=== PATIENT | female | born 1935 | race Caucasian/White ===

== ENCOUNTER 2018-11-11 13:11 | Inpatient (IN) | payer MEDICARE ==
[~2018-11-11] VITALS: Ht 162.6 cm; Wt 54.7 kg
[2018-11-11] MEDS ORDERED: MORPHINE SULFATE 2 MG/ML 1ML SYG ONE (13:42)
[2018-11-11 13:43] LABS: BASOPHILS % (AUTO) 0.6 % (0.0-5.0); EOSINOPHILS % (AUTO) 0.2 % (0.0-8.0); HEMATOCRIT 42.8 % (36-48); LYMPHOCYTES % (AUTO) 6.9 % (21.0-51.0); MEAN CORPUSCULAR HEMOGLOBIN 30.8 pg (27.0-33.0); MEAN CORPUSCULAR VOLUME 93.4 fL (79-99); MONOCYTES % (AUTO) 6.1 % (3.0-13.0); NEUTROPHILS % (AUTO) 86.2 % (40.0-77.0); PLATELET COUNT (AUTO) 327 K/uL (130-400); RED BLOOD CELL COUNT(AUTO) 4.58 MIL/uL (4.00-5.50); WHITE BLOOD COUNT (AUTO) 16.7 K/uL (4.8-10.8)
[2018-11-11 13:47] LABS: CREATININE 0.8 mg/dL (0.5-1.5); POTASSIUM 3.8 mmol/L (3.5-5.1)
[2018-11-11] MEDS ORDERED: KETOROLAC TROMETHAMINE 15MG/ML ONE ×2 (13:50→20:40)
[2018-11-11 13:56] LABS: ALBUMIN 3.5 g/dL (3.5-5.0); BILIRUBIN,TOTAL 0.5 mg/dL (0.2-1.0); TOTAL PROTEIN, SERUM 7.6 g/dL (6.0-8.3)
[2018-11-11] MEDS ORDERED: IPRATROPIUM/ALBUTEROL SULFATE 3 ML SOLUTION IH ONE (14:11)
[2018-11-11] MEDS ORDERED: FENTANYL CITRATE PF 50 MCG/1 ML 2ML VIAL ONE (16:23)
[2018-11-11] MEDS ORDERED: SODIUM CHLORIDE 0.9% 1000ML 1,000 ML IV SCH (16:36)
[2018-11-11] MEDS ORDERED: HYDRALAZINE HCL 20 MG/ML VIAL IV PRN (16:45)
[2018-11-11] MEDS ORDERED: ACETAMINOPHEN 325 MG TAB PO PRN ×2 (16:45)
[2018-11-11] MEDS ORDERED: LACTULOSE 20 GM/30 ML UDCUP PO PRN (16:45)
[2018-11-11 17:40] LABS: HEMOGLOBIN A1C 5.6 % (4.0-6.0)
[2018-11-11] MEDS ORDERED: IPRATROPIUM/ALBUTEROL SULFATE 3 ML SOLUTION IH PRN (20:30)
[2018-11-11 20:32] VITALS: BP 145/71
[2018-11-11] MEDS: ONDANSETRON HCL 4 MG/2 ML VIAL IV PRN (20:45)
[2018-11-11] MEDS: KETOROLAC TROMETHAMINE 15MG/ML IV PRN (20:45)
[2018-11-11] MEDS: METOPROLOL TARTRATE 25 MG TAB PO SCH (23:12)
[2018-11-11 23:25] VITALS: BP 119/54
[2018-11-12 03:52] VITALS: BP 139/60
[2018-11-12] MEDS: ONDANSETRON HCL 4 MG/2 ML VIAL IV PRN (04:08)
[2018-11-12] MEDS: KETOROLAC TROMETHAMINE 15MG/ML IV PRN ×2 (04:08→15:57)
[2018-11-12 07:46] VITALS: BP 128/57
[2018-11-12] MEDS: METOPROLOL TARTRATE 25 MG TAB PO SCH ×2 (09:01→20:17)
[2018-11-12] MEDS: ENOXAPARIN SODIUM 30 MG/0.3 ML SQ SCH (09:01)
[2018-11-12] MEDS: FAMOTIDINE/PF 20 MG/2 ML VIAL IV SCH (09:01)
--- NOTE | 2018-11-12 10:00 | NUR ---
INITIAL- INFO FROM SON SPOKE WITH SON RE DC PLANNING SON BELLA OWEN STATES HE MOVED HIS PARENTS DOWN TO CARE FOR THEM ABOUT TWO WEEKS AGO- MOM FELL AND FX'D LEG- UNDERSTANDS WILL NEED REHAB. 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 ARIEL TO BE SENT PENDING LIST FOR SON OF [facility] TO GET LIST AND SON LEFT BEFORE THIS CM RETURNED. WILL ASK CM TO FOLLOW UP Addendum: 11/12/18 at 1957 by MEHRDAD BERTRAND RN Amended: Links added.
[2018-11-12] MEDS ORDERED: ASPI-1197 PO (10:54)
[2018-11-12] MEDS ORDERED: BUPR150T8 PO (10:54)
[2018-11-12] MEDS ORDERED: TRAZ-185 PO (10:54)
[2018-11-12] MEDS ORDERED: AMLO10TA7 PO (10:54)
[2018-11-12] MEDS ORDERED: PRED10TA3 PO (10:54)
[2018-11-12] MEDS ORDERED: BUDE10.2 IH (10:54)
[2018-11-12] MEDS ORDERED: METO25TA6 PO (10:54)
[2018-11-12] MEDS ORDERED: TYL3 PO (10:54)
[2018-11-12] MEDS ORDERED: LORA10CA PO (10:54)
[2018-11-12] MEDS ORDERED: FLUT1BLS3 IH (10:54)
[2018-11-12 11:00] VITALS: BP 118/55
--- NOTE | 2018-11-12 15:40 | NUR ---
FAXED JOCELYNN FOR CARDIAC RECORD- ADVISED DR. ACOSTA WHO STATED HE DID NOT NEED THEM AND WAS SIGNING OFF Addendum: 11/12/18 at 2001 by MEHRDAD BERTRAND RN FROM HER ANTONY [facility]ERS. HAVE NOT FAXED FOR PULMONARY MD
[2018-11-12 16:00] VITALS: BP 132/76
[2018-11-12 20:06] VITALS: BP 102/50
[2018-11-12] MEDS: ACETAMINOPHEN-CODEINE 300/30MG TAB PO PRN (20:17)
[2018-11-12] MEDS: TRAZODONE HCL 50 MG TAB PO SCH (20:17)
[2018-11-12] MEDS: CEFTRIAXONE SODIUM 1 GM IVP SCH (23:14)
[2018-11-12 23:16] LABS: APPEARANCE,URINE Clear (CLEAR); BILIRUBIN,URINE Negative (NEGATIVE); COLOR,URINE Dark Yellow (YELLOW); GLUCOSE, URINE (UA) Negative (NEGATIVE); KETONES,URINE Negative (NEGATIVE); LEUKOCYTE ESTERASE ,URINE Moderate (NEGATIVE); NITRATE,URINE Negative (NEGATIVE); OCCULT BLOOD,URINE Negative (NEGATIVE); PH,URINE 5.5 (5.0-8.0); PROTEIN,URINE Negative (NEGATIVE)
[2018-11-12 23:25] LABS: RBC,URINE 0-1 /HPF (0-1)
[2018-11-12 23:26] LABS: BACTERIA,URINE Few /HPF (None Seen)
[2018-11-12 23:55] VITALS: BP 109/52
[2018-11-13] MEDS: ACETAMINOPHEN-CODEINE 300/30MG TAB PO PRN (03:37)
[2018-11-13 04:00] VITALS: BP 104/55
[2018-11-13 08:00] VITALS: BP 80/58
[2018-11-13 09:00] VITALS: BP 112/78
[2018-11-13] MEDS: AMLODIPINE BESYLATE 5 MG TAB PO SCH (09:00)
[2018-11-13] MEDS: Fluticasone/Umeclidin/Vilanter (Trelegy Ellipta 100-62.5- IH SCH (09:00)
[2018-11-13] MEDS ORDERED: SYMBICORT 160-4.5 MCG INHALER IH PRN (09:00)
[2018-11-13] MEDS: METOPROLOL TARTRATE 25 MG TAB PO SCH ×2 (09:00→20:36)
[2018-11-13] MEDS: PREDNISONE 10 MG TABLET PO SCH (09:29)
[2018-11-13] MEDS: LORATADINE 10 MG TABLET PO SCH (09:29)
[2018-11-13] MEDS: FAMOTIDINE/PF 20 MG/2 ML VIAL IV SCH (09:29)
[2018-11-13] MEDS: BUPROPION HCL 150 MG TABLET.SA PO SCH (09:30)
[2018-11-13] MEDS: ENOXAPARIN SODIUM 30 MG/0.3 ML SQ SCH (09:30)
[2018-11-13] MEDS: KETOROLAC TROMETHAMINE 15MG/ML IV PRN ×2 (10:44→20:37)
[2018-11-13 12:00] VITALS: BP 116/57
[2018-11-13] MEDS ORDERED: GUAIFENESIN-DM 200/20 MG 10 ML PO PRN (13:30)
[2018-11-13 16:00] VITALS: BP 113/52
[2018-11-13] MEDS: IPRATROPIUM/ALBUTEROL SULFATE 3 ML SOLUTION IH SCH ×2 (18:29→23:24)
[2018-11-13 20:12] VITALS: BP 121/51
[2018-11-13] MEDS: CEFTRIAXONE SODIUM 1 GM IVP SCH (20:36)
[2018-11-13] MEDS: TRAZODONE HCL 50 MG TAB PO SCH (20:36)
--- NOTE | 2018-11-13 21:40 | NUR ---
RECEIVED A CALL FROM DR. HERNANDEZ TO PLACE PT. ON NPO AT MIDNIGHT FOR CLOSE REDUCTION AND CASTING OF LEFT LEG AT 10AM (N 11/14/18). MR. BELLA Pedro ( PT. SON) NOTIFIED AT BEDSIDE AND AGREED. PROFESSOR OF MUSICOLOGY MADE AWARE.
[2018-11-14] VITALS (31 sets, daily range): BP systolic 70–156; BP diastolic 28–84
[2018-11-14] MEDS: KETOROLAC TROMETHAMINE 15MG/ML IV PRN ×2 (02:46→14:02)
[2018-11-14] MEDS: IPRATROPIUM/ALBUTEROL SULFATE 3 ML SOLUTION IH SCH ×3 (06:11→18:58)
[2018-11-14] MEDS: LORATADINE 10 MG TABLET PO SCH (08:46)
[2018-11-14] MEDS: AMLODIPINE BESYLATE 5 MG TAB PO SCH (08:46)
[2018-11-14] MEDS: PREDNISONE 10 MG TABLET PO SCH (08:46)
[2018-11-14] MEDS: BUPROPION HCL 150 MG TABLET.SA PO SCH (08:46)
[2018-11-14] MEDS: ENOXAPARIN SODIUM 30 MG/0.3 ML SQ SCH (08:46)
[2018-11-14] MEDS: Fluticasone/Umeclidin/Vilanter (Trelegy Ellipta 100-62.5- IH SCH (08:46)
[2018-11-14] MEDS: FAMOTIDINE/PF 20 MG/2 ML VIAL IV SCH (08:52)
[2018-11-14] MEDS: METOPROLOL TARTRATE 25 MG TAB PO SCH (08:52)
[2018-11-14] MEDS ORDERED: PROPOFOL 10 MG/ML 20ML VIAL IV ONE (11:14)
--- NOTE | 2018-11-14 11:45 | NUR ---
NOTICED LT FOOT TOES COL TO TOUCH WITH CAPILLARY REFILL 5-6 SEC,AND SLIGHTLY PURPLE . LE IS ELEVATED AND WARM AIR APPLIED TO IN PROVE PERFUSION. WILL CONTACT DR. HERNANDEZ Addendum: 11/14/18 at 1243 by GILMER DIAZ RN RN Amended: Links added.
[2018-11-14] MEDS ORDERED: EPHEDRINE SULFATE 50 MG/ML AMPULE ONE (11:46)
--- NOTE | 2018-11-14 12:05 | NUR ---
DR. HERNANDEZ NOTIFIED BY [employer]ESS[employer] THAT TOES TO LT FOOT HAD A CAPILLARY REFILL OF 5 TO 6 SEC , COLD TO TOUCH AND SLIGHTLY PURPLE . ORDER RECEIVED TO CUT CAST . Addendum: 11/14/18 at 1219 by GLIMER DIAZ RN RN Amended: Links added.
--- NOTE | 2018-11-14 12:45 | NUR ---
ANITA LIRATON [employer] B[employer] ARCHITECT AND XIOMARA MERAZ RN AT BEDSIDE TO CUT EXTERIOR PART OF CAST ORDERED FROM 5TH TOE TO HEAL. Addendum: 11/14/18 at 1309 by GILMER DIAZ RN RN Amended: Links added.
--- NOTE | 2018-11-14 13:20 | NUR ---
TRANSFER FROM PACU PATIENT TRANSFERRED FROM PACU, VITAL SIGNS IN EMR STABLE. PER REPORT, CAST TO LEFT LOWER EXTREMITY CUT FROM PINKY TOE TOWARDS HEEL DUE TO COMPRESSION. CAPILLARY REFILL POSITIVE AT 3-4 SECONDS, WARM TO TOUCH. LLE ELEVATED WITH PILLOWS. PT IS DROWSY BUT AAOX3. WILL CONTINUE TO MONITOR, NO PAIN AT THE MOMENT. PT VOICES FEELING TO LLE.
--- NOTE | 2018-11-14 13:20 | NUR ---
transfer back to [facility], toes pink in color, warm to touch , capillary refill 3-4 sec, no swelling noted . pt is able to wiggle toes and verbalizes sensation to be intact . no c/o numbness or tingling Addendum: 11/14/18 at 1336 by GILMER IDAZ RN RN Amended: Links added.
[2018-11-14] MEDS ORDERED: OXYCODONE/ACETAMIN 5/325MG TAB PO PRN ×2 (14:45)
--- NOTE | 2018-11-14 15:51 | NUR ---
DR. BOBO PENDING ROUND DR. BOBO MADE AWARE OF DR. RUBIN ORDERS. PT PENDING PHYSICAL THERAPY EVALUATION WELL WALKER EVALUATION. CAPILLARY REFILL REMAINS THE SAME. PER SON, UNDER IMPRESSION THAT DR HERNANDEZ HAS DISCHARGED PATIENT. MADE SON AWARE OF STANDPOINT FROM DR. HERNANDEZ, PER SON, HE HAS TO BE IN COURT TOMORROW AND WANTS HIS MOTHER DISCHARGE FROM HOSPITAL. WILL MAKE DR. BOBO AWARE. WILL FOLLOW DISCHARGE CLOSELY.
[2018-11-14] MEDS ORDERED: TRAM1TAB PO (19:09)
--- NOTE | 2018-11-14 19:14 | NUR ---
Patient requires 1 person assist for balance and safety NWB LLE using SW and 2 liters of oxygen.Recommending Home Health Physical Therapy for further home evaluation and transition for patient's with her ADL's. Addendum: 11/14/18 at 1916 by ANITA GARCIA, PT PT Amended: Links added.
--- NOTE | 2018-11-14 20:45 | NUR ---
DISCHARGE NOTES; Discharge home / meds instructions given to patient's son ( Vince ). Verbalized understanding. Questions entertained. Was seen and examined by PT. IV site to left FA discontinued with cath intact. Covered with gauze to prevent bleeding. Discharge via W/C per private vehicle to home. No apparent distress noted. No untoward incident happened. Cared for.
== END 2018-11-14 21:30 | disposition home or self-care (01) | DRG 563 ==
LOC: EDH 13:11 → EDHIP 16:36 → 4BH 19:12
PROVIDERS: ADMIT Internal Medicine; ATTEND Internal Medicine
PROC: 2W3MX2Z Immobilization of Left Lower Extremity using Cast (ICD-10-PCS; 2018-11-14)
PROC: 0QSHXZZ Reposition Left Tibia, External Approach (ICD-10-PCS; principal; 2018-11-14 11:21)
DX: S82.242A Displaced spiral fracture of shaft of left tibia, initial encounter for closed fracture (principal); N39.0 Urinary tract infection, site not specified; J44.9 Chronic obstructive pulmonary disease, unspecified; W06.XXXA Fall from bed, initial encounter; I10 Essential (primary) hypertension; I25.10 Atherosclerotic heart disease of native coronary artery without angina pectoris; Z96.641 Presence of right artificial hip joint; S82.142A Displaced bicondylar fracture of left tibia, initial encounter for closed fracture; Z99.81 Dependence on supplemental oxygen; Z95.2 Presence of prosthetic heart valve; Z87.891 Personal history of nicotine dependence; Z79.82 Long term (current) use of aspirin; Z85.3 Personal history of malignant neoplasm of breast; Z88.5 Allergy status to narcotic agent; Z90.13 Acquired absence of bilateral breasts and nipples; Y93.89 Activity, other specified; Y92.89 Other specified places as the place of occurrence of the external cause; Y99.8 Other external cause status
CPT/HCPCS: 36415; 71045; 73562; 73590; 73700; 80053; 81001; 83036; 84484; 85025; 87040; 87071; 87088; 87205; 93005; 93306; 94640; 94664; 97039; A4606; G0378; J0696; J1650; J1885; J2405; J2704; J3010; J3490; J7030; J7512

== ENCOUNTER 2020-10-16 12:12 | Emergency (ER) | payer MEDICARE ==
[~2020-10-16] VITALS: Ht 165.1 cm; Wt 59.0 kg
[~2020-10-16 12:12] MED LIST: AMLO-258 PO; ASPI-1197 PO; BUDE10.2 IH; BUPR150T8 PO; FLUT1BLS3 IH; LORA10CA PO; METO25TA6 PO; PRED10TA3 PO; TRAM1TAB PO; TRAZ-185 PO
[2020-10-16 12:13] VITALS: BP 128/60
[2020-10-16 12:42] LABS: BASOPHILS % (AUTO) 1.3 % (0.0-5.0); EOSINOPHILS % (AUTO) 1.8 % (0.0-8.0); HEMATOCRIT 40.5 % (36-48); LYMPHOCYTES % (AUTO) 18.4 % (21.0-51.0); MEAN CORPUSCULAR HEMOGLOBIN 30.2 pg (27.0-33.0); MEAN CORPUSCULAR HGB CONC 31.4 g/dL (32.0-36.0); MEAN CORPUSCULAR VOLUME 96.4 fL (79-99); MONOCYTES % (AUTO) 7.8 % (3.0-13.0); NEUTROPHILS % (AUTO) 70.4 % (40.0-77.0); PLATELET COUNT (AUTO) 311 K/uL (130-400); RED CELL DISTRIBUTION WIDTH 12.8 % (11.0-15.5); WHITE BLOOD COUNT (AUTO) 7.2 K/uL (4.8-10.8)
[2020-10-16 12:50] LABS: CARBON DIOXIDE 30 mmol/L (21-32); CHLORIDE 104 mmol/L (101-111); CREATININE 0.8 mg/dL (0.5-1.5); GLOMERULAR FILTR. RATE CALC 72 mL/min (>60); GLUCOSE,RANDOM 93 mg/dL (70-105); POTASSIUM 4.8 mmol/L (3.5-5.1); SODIUM SERUM 141 mmol/L (136-145); UREA NITROGEN, BLOOD 20 mg/dL (7-18)
[2020-10-16 13:02] LABS: ALANINE AMINOTRANSFERASE 29 U/L (12-78); ALBUMIN 3.9 g/dL (3.5-5.0); ASPARTATE AMINOTRANSFERASE 20 U/L (10-37); BILIRUBIN,TOTAL 0.3 mg/dL (0.2-1.0); CREATINE KINASE, TOTAL 92 U/L (21-232); MYOGLOBIN 71 ng/mL (10-92); TOTAL PROTEIN, SERUM 7.4 g/dL (6.0-8.3); TROPONIN I < 0.04 ng/mL (0.00-0.06)
[2020-10-16 13:18] LABS: INR 0.98 (0.85-1.15); PROTHROMBIN TIME 10.7 SEC (9.6-11.6)
[2020-10-16 13:20] LABS: PARTIAL THROMBOPLASTIN TIME 26.8 SEC (26.3-35.5)
[2020-10-16] MEDS ORDERED: ACETAMINOPHEN 325 MG TAB ONE (13:44)
[2020-10-16] MEDS ORDERED: ACETAMINOPHEN 325 MG TAB PO ONE (14:30)
[2020-10-16] MEDS ORDERED: FENTANYL CITRATE PF 50 MCG/1 ML 2ML VIAL IVP ONE (15:00)
[2020-10-16] MEDS ORDERED: IOHEXOL-350 75 ML VIAL IV ONE (15:19)
[2020-10-16 16:00] VITALS: BP 98/44
[2020-10-16] MEDS ORDERED: ASPIRIN 81MG CHEW TAB ONE (16:57)
[2020-10-16 17:00] VITALS: BP 102/41
[2020-10-16 18:16] VITALS: BP 94/44
== END 2020-10-16 18:30 ==
LOC: EDH 12:32
DX: I63.233 Cerebral infarction due to unspecified occlusion or stenosis of bilateral carotid arteries (principal); E04.2 Nontoxic multinodular goiter; J44.9 Chronic obstructive pulmonary disease, unspecified; Z79.1 Long term (current) use of non-steroidal anti-inflammatories (NSAID); Z79.52 Long term (current) use of systemic steroids; Z79.82 Long term (current) use of aspirin; Z79.51 Long term (current) use of inhaled steroids; Z95.2 Presence of prosthetic heart valve; Z79.899 Other long term (current) drug therapy; Z88.5 Allergy status to narcotic agent
CPT/HCPCS: 36415; 70450; 70496; 70498; 80053; 82550; 83874; 84484; 85025; 85610; 85651; 85730; 93005; 96374; 99285; J3010; Q9967